=== PATIENT | female | born 1995 | race Caucasian/White ===

== ENCOUNTER 2018-07-09 21:29 | Emergency (ER) | payer SELFPAY ==
[~2018-07-09] VITALS: Ht 160 cm; Wt 42.4 kg
[2018-07-09 21:42] VITALS: BP 135/62
--- NOTE | 2018-07-09 21:51 | NUR ---
Pt ambulated to bed 5.
--- NOTE | 2018-07-09 22:03 | NUR ---
22/F PRESENTS TO ED, C/O 01/24 R FLANK PAIN, X1 WEEK. REPORTS BEING , LMP 03/31/18, A0. DENIES VAGINAL BLEEDING. REPORTS N/V X10-15, DECREASED APPETITE. REPORTS SUBJECTIVE FEVER. DENIES CONSTIPATION, DIARRHEA OR DYSURIA. AOX4, RR EVEN AND UNLABORED. DENIES MED HX OR RX
[2018-07-09] MEDS ORDERED: ONDANSETRON 4 MG ODT PO ONE (22:05)
[2018-07-09 22:34] LABS: APPEARANCE,URINE CLEAR (CLEAR); BILIRUBIN,URINE 2+ (NEGATIVE); BLOOD, URINE 1+ (NEGATIVE); COLOR,URINE DARK YELLOW (YELLOW); LEUKOCYTE ESTERASE ,URINE TRACE (NEGATIVE); NITRITE, URINE NEGATIVE (NEGATIVE); PH,URINE 6.5 (5.0-9.0); UGLUCOSE NEGATIVE (NEGATIVE)
[2018-07-09 22:34] LABS: BASOPHILS % (AUTO) 0.3 % (0.0-2.0); EOSINOPHILS % (AUTO) 0.2 % (0.0-4.0); HEMATOCRIT 31.9 % (36-48); HEMOGLOBIN 10.9 g/dL (12.0-16.0); LYMPHOCYTES % (AUTO) 10.6 % (20.5-51.1); MEAN CORPUSCULAR HEMOGLOBIN 29 pg (27-31); MEAN CORPUSCULAR HGB CONC 34 g/dL (33-37); MONOCYTES # (AUTO) 0.6 K/uL (0.8-1.0); NEUTROPHILS % (AUTO) 82.9 % (42.2-75.2); PLATELET COUNT (AUTO) 229 K/uL (140-450); RED BLOOD CELL COUNT(AUTO) 3.75 MIL/uL (4.20-5.40); RED CELL DISTRIBUTION WIDTH 13.1 % (11.6-13.7); WHITE BLOOD COUNT (AUTO) 9.6 K/uL (4.8-10.8)
[2018-07-09 22:40] LABS: RBC,URINE >20 (MANY) /HPF (0-5)
[2018-07-09 22:44] LABS: ANION GAP 16.3 (8-16); CARBON DIOXIDE 23.8 mmol/L (21-32); CREATININE 0.5 mg/dL (0.6-1.3); POTASSIUM 3.1 mmol/L (3.5-5.1)
[2018-07-09 22:49] LABS: ALBUMIN 2.6 g/dL (3.4-5.0); TOTAL BILIRUBIN 0.7 mg/dL (0.0-1.0)
[2018-07-09] MEDS ORDERED: POTASSIUM CHLORIDE 10 MEQ TABER PO ONE (23:00)
[2018-07-09] MEDS ORDERED: NITROFURANTOIN 100 MG CAP PO ONE (23:00)
--- NOTE | 2018-07-09 23:35 | NUR ---
DR. DOOLEY MADE AWARE OF PT'S HR 115 PRIOR TO DISCHARGE. PATIENT AFEBRILE. DR. DOOLEY AWARE AND OKAY TO DISCHARGE PATIENT HOME.
[2018-07-09 23:36] VITALS: BP 98/58
--- NOTE | 2018-07-09 23:36 | NUR ---
Patient discharged with v/s stable. Written and verbal after care instructions given and explained. Patient alert, oriented and verbalized understanding of instructions. Ambulatory with steady gait. All questions addressed prior to discharge. ID band removed. Patient advised to follow up with PMD. Rx of Ferrous Sulfate and Macrobid given. Patient educated on indication of medication including possible reaction and side effects. Opportunity to ask questions provided and answered.
== END 2018-07-09 23:36 | disposition home or self-care (01) ==
LOC: MED 21:29
DX: O23.42 Unspecified infection of urinary tract in pregnancy, second trimester (principal); O99.012 Anemia complicating pregnancy, second trimester; O26.892 Other specified pregnancy related conditions, second trimester; E87.6 Hypokalemia; Z3A.15 15 weeks gestation of pregnancy
CPT/HCPCS: 36415; 76705; 76805; 80053; 81001; 81025; 83690; 85025; 87086; 99284; Q0092; Q0162; 87186